=== PATIENT | male | born 1955 | race Caucasian/White ===

== ENCOUNTER 2017-02-05 09:52 | Emergency (ER) | payer OTHER ==
[~2017-02-05] VITALS: Ht 175.3 cm; Wt 88.0 kg
[2017-02-05 09:53] VITALS: BP 167/85; PULSE 76; RESP 20; TEMP 98.1; O2SAT 95
[2017-02-05] MEDS ORDERED: LORazepam 1 MG TAB PO ONE ×2 (11:00→17:45)
[2017-02-05 11:49] LABS: AUTOMATED NEUTROPHIL # 2.5 TH/MM3 (1.8-7.7); BASOPHIL # 0.1 TH/MM3 (0-0.2); BASOPHIL % 1.6 % (0.0-2.0); EOSINOPHIL % 0.7 % (0.0-4.0); HEMATOCRIT 41.6 % (39.0-51.0); LYMPH % 16.6 % (9.0-44.0); LYMPHOCYTE # 0.6 TH/MM3 (1.0-4.8); MEAN CELL VOLUME 86.2 FL (80.0-100.0); MEAN CORPUSCULAR HEMOGLOBIN 28.6 PG (27.0-34.0); MEAN CORPUSCULAR HGB CONC 33.2 % (32.0-36.0); MONO % 7.2 % (0.0-8.0); NEUT % 73.9 % (16.0-70.0); PLATELET COUNT 170 TH/MM3 (150-450); RED BLOOD COUNT 4.83 MIL/MM3 (4.50-5.90); RED CELL DISTRIBUTION WIDTH 13.8 % (11.6-17.2); WHITE BLOOD COUNT 3.4 TH/MM3 (4.0-11.0)
[2017-02-05 11:54] LABS: ALT (GPT) 19 U/L (12-78); ANION GAP 10 MEQ/L (5-15); AST (GOT) 20 U/L (15-37); BICARBONATE 25.8 MEQ/L (21.0-32.0); BLOOD UREA NITROGEN 19 MG/DL (7-18); CHLORIDE 102 MEQ/L (98-107); GLOMERULAR FILTRATION RATE 55 ML/MIN (>89); POTASSIUM 3.9 MEQ/L (3.5-5.1); SODIUM (NA) 138 MEQ/L (136-145)
[2017-02-05 11:55] LABS: HEMO FLAGS AUTO DIFF
[2017-02-05 11:57] LABS: ALKALINE PHOSPHATASE 55 U/L (45-117); TOTAL BILIRUBIN ADULT 0.7 MG/DL (0.2-1.0)
--- NOTE | 2017-02-05 12:13 | PD ---
HPI Chief Complaint: Medical Clearance Time Seen by Provider: 10:57 Travel History International Travel<30 days: No Contact w/Intl Traveler<30days: No Traveled to known affect area: No History of Present Illness HPI 58 through male with history of anxiety presents to the emergency department progressive worsening anxiety and feels like he needs to be hospitalized. He states he's had anxiety in the past. Typically when he has episodes she comes and stays with his sister, they try to reduce stress. This wasn't working. He saw his outpatient psychiatrist who made some medication adjustments. He last saw a psychiatrist on . Despite these adjustments he states he's got progressively more anxious, worried, hasn't slept in several days. He is brought in today accompanied by his sister. History Past Medical History Narrative Medical Anxiety Hypertension Diabetes GERD Past Surgical History Surgical History: No Previous Surgery Social History Alcohol Use: No Tobacco Use: No Allergies-Medications (Allergen,Severity, Reaction): Coded Allergies: No Known Allergies (Verified Allergy, Unknown, 02/05/17) Review of Systems Except as stated in HPI: all other systems reviewed are Neg Physical Exam Narrative GENERAL: Well-appearing 61-year-old man, anxious, nontoxic. SKIN: Focused skin assessment warm/dry. HEAD: Atraumatic. Normocephalic. EYES: Pupils equal and round. No scleral icterus. No injection or drainage. ENT: No nasal bleeding or discharge. Mucous membranes pink and moist. NECK: Trachea midline. No JVD. CARDIOVASCULAR: Regular rate and rhythm. No murmur appreciated. RESPIRATORY: No accessory muscle use. Clear to auscultation. Breath sounds equal bilaterally. GASTROINTESTINAL: Abdomen soft, non-tender, nondistended. Hepatic and splenic margins not palpable. MUSCULOSKELETAL: No obvious deformities. No clubbing. No cyanosis. No edema. NEUROLOGICAL: Awake and alert. No obvious cranial nerve deficits. Motor grossly within normal limits. Normal speech. PSYCHIATRIC: Anxious. Data Data Last Documented VS Vital Signs Date Time Temp Pulse Resp B/P (MAP) Pulse Ox O2 Delivery O2 Flow Rate FiO2 02/05/17 10:11 69 18 02/05/17 09:53 98.1 167/85 (112) 95 Room Air Orders Orders Complete Blood Count With Diff (02/05/17 10:57) Comprehensive Metabolic Panel (02/05/17 10:57) Psych Screen (02/05/17 10:57) Drug Screen, Random Urine (02/05/17 10:57) Lorazepam (Ativan) (02/05/17 11:00) Diet Regular Basic (02/05/17 Lunch) Labs Laboratory Tests Test 02/05/17 11:13 White Blood Count 3.4 TH/MM3 Red Blood Count 4.83 MIL/MM3 Hemoglobin 13.8 GM/DL Hematocrit 41.6 % Mean Corpuscular Volume 86.2 FL Mean Corpuscular Hemoglobin 28.6 PG Mean Corpuscular Hemoglobin Concent 33.2 % Red Cell Distribution Width 13.8 % Platelet Count 170 TH/MM3 Mean Platelet Volume 9.1 FL Neutrophils (%) (Auto) 73.9 % Lymphocytes (%) (Auto) 16.6 % Monocytes (%) (Auto) 7.2 % Eosinophils (%) (Auto) 0.7 % Basophils (%) (Auto) 1.6 % Neutrophils # (Auto) 2.5 TH/MM3 Lymphocytes # (Auto) 0.6 TH/MM3 Monocytes # (Auto) 0.2 TH/MM3 Eosinophils # (Auto) 0.0 TH/MM3 Basophils # (Auto) 0.1 TH/MM3 CBC Comment AUTO DIFF Blood Urea Nitrogen 19 MG/DL Creatinine 1.32 MG/DL Random Glucose 114 MG/DL Total Protein 7.5 GM/DL Albumin 4.0 GM/DL Calcium Level 9.2 MG/DL Alkaline Phosphatase 55 U/L Aspartate Amino Transf (AST/SGOT) 20 U/L Alanine Aminotransferase (ALT/SGPT) 19 U/L Total Bilirubin 0.7 MG/DL Sodium Level 138 MEQ/L Potassium Level 3.9 MEQ/L Chloride Level 102 MEQ/L Carbon Dioxide Level 25.8 MEQ/L Anion Gap 10 MEQ/L Estimat Glomerular Filtration Rate 55 ML/MIN [facility] Medical Decision Making Medical Screen Exam Complete: Yes Emergency Medical Condition: Yes Interpretation(s) LABS: CBC is unremarkable. CMP is remarkable for a little bit a renal disease. UA is positive for benzodiazepines. Differential Diagnosis Anxiety, stress reaction, adjustment reaction, other Narrative Course Medical decision making 60-year-old man progressive worsening anxiety presents to the emergency department requesting see psychiatry stating that he feels like he is been hospitalized for his anxiety. Patient is medically clear for psychiatric evaluation. Mental health screening discussed with the patient. Psychiatric screen ordered. James Bernal MD Feb 05, 2017 12:13
[2017-02-05 12:53] LABS: SCAN/DIFF AUTO DIFF CONFIRMED
--- NOTE | 2017-02-05 18:03 | PD ---
Physical Exam Date Seen by Provider: Feb 05, 2017 Time Seen by Provider: 18:02 Narrative 61-year-old male came to the emergency room with history of anxiety and depression. He was seen by the previous ER physician. He's been medically cleared. Currently waiting for psych evaluation. His sister is here who came out asking for some more by mouth Ativan for the patient since he is getting anxious. He was given 1 at 11 AM. I ordered 1 mg by mouth. If patient does not get a psych screen by the psychiatrist keya I will sign him over at the end of my shift to the PA who will be overnight in this pod. Data Data Last Documented VS Vital Signs Date Time Temp Pulse Resp B/P (MAP) Pulse Ox O2 Delivery O2 Flow Rate FiO2 02/06/17 11:22 02/06/17 07:00 98.0 84 16 99 Room Air Orders Orders Complete Blood Count With Diff (02/05/17 10:57) Comprehensive Metabolic Panel (02/05/17 10:57) Psych Screen (02/05/17 10:57) Drug Screen, Random Urine (02/05/17 10:57) Lorazepam (Ativan) (02/05/17 11:00) Diet Regular Basic (02/05/17 Dinner) Lorazepam (Ativan) (02/05/17 17:45) Alprazolam (Xanax) (02/05/17 22:30) Diet Regular Basic (02/06/17 Breakfast) Labs Laboratory Tests Test 02/05/17 11:13 White Blood Count 3.4 TH/MM3 Red Blood Count 4.83 MIL/MM3 Hemoglobin 13.8 GM/DL Hematocrit 41.6 % Mean Corpuscular Volume 86.2 FL Mean Corpuscular Hemoglobin 28.6 PG Mean Corpuscular Hemoglobin Concent 33.2 % Red Cell Distribution Width 13.8 % Platelet Count 170 TH/MM3 Mean Platelet Volume 9.1 FL Neutrophils (%) (Auto) 73.9 % Lymphocytes (%) (Auto) 16.6 % Monocytes (%) (Auto) 7.2 % Eosinophils (%) (Auto) 0.7 % Basophils (%) (Auto) 1.6 % Neutrophils # (Auto) 2.5 TH/MM3 Lymphocytes # (Auto) 0.6 TH/MM3 Monocytes # (Auto) 0.2 TH/MM3 Eosinophils # (Auto) 0.0 TH/MM3 Basophils # (Auto) 0.1 TH/MM3 CBC Comment AUTO DIFF Differential Comment AUTO DIFF CONFIRMED Blood Urea Nitrogen 19 MG/DL Creatinine 1.32 MG/DL Random Glucose 114 MG/DL Total Protein 7.5 GM/DL Albumin 4.0 GM/DL Calcium Level 9.2 MG/DL Alkaline Phosphatase 55 U/L Aspartate Amino Transf (AST/SGOT) 20 U/L Alanine Aminotransferase (ALT/SGPT) 19 U/L Total Bilirubin 0.7 MG/DL Sodium Level 138 MEQ/L Potassium Level 3.9 MEQ/L Chloride Level 102 MEQ/L Carbon Dioxide Level 25.8 MEQ/L Anion Gap 10 MEQ/L Estimat Glomerular Filtration Rate 55 ML/MIN Urine Opiates Screen NEG Urine Barbiturates Screen NEG Urine Amphetamines Screen NEG Urine Benzodiazepines Screen POS Urine Cocaine Screen NEG Urine Cannabinoids Screen NEG MDM Supervised Visit with STELLA: No Scripts Lorazepam (Ativan) 0.5 Mg Tab 0.5 MG PO TID Y for ANXIETY AND/OR AGITATION, #90 TAB 0 Refills Prov: Raymond Vizcarra MD 02/06/17 Jeffrey Ward MD Feb 05, 2017 18:03
[2017-02-05 19:00] VITALS: BP 148/74; PULSE 70; RESP 18; O2SAT 96
[2017-02-05] MEDS ORDERED: ALPR0.5T3 PO (20:11)
[2017-02-05] MEDS ORDERED: METF500T4 PO (20:33)
[2017-02-05] MEDS ORDERED: RANI300T PO (20:33)
[2017-02-05] MEDS ORDERED: AMLO2.5C PO (20:33)
[2017-02-05] MEDS ORDERED: PARO40TA2 PO (20:33)
[2017-02-05] MEDS ORDERED: SERT-129 PO (20:33)
[2017-02-05] MEDS ORDERED: PRAV40TA2 PO (20:33)
[2017-02-05] MEDS ORDERED: TRAZ1TAB45 PO (20:33)
[2017-02-05] MEDS ORDERED: ALPRAZolam 0.5 MG TAB PO ONE (22:30)
[2017-02-05 23:00] VITALS: BP 140/69; PULSE 68; RESP 17; O2SAT 95
[2017-02-06 03:00] VITALS: BP 126/70; PULSE 73; RESP 17; O2SAT 96
[2017-02-06 07:00] VITALS: BP 124/78; PULSE 84; RESP 16; TEMP 98; O2SAT 99
[2017-02-06] MEDS ORDERED: LORA-392 PO (10:05)
--- NOTE | 2017-02-06 10:10 | PD ---
History of Present Illness Chief Complaint: Medical Clearance Time Seen by Provider: 10:00 Travel History International Travel<30 Days: No Contact w/Intl Traveler<30days: No Known affected area: No Legal Status Legal Status: Voluntary History of Present Illness: 61-year-old male presents with incapacitating anxiety. Patient's own psychiatrist changed him from Ativan 0.5 3 times a day to Xanax. Patient states this is not helping and he is worse. Wants to return to Ativan. Wants to continue on his antidepressant medicine. Denies any suicidal or homicidal ideation, plan or intent. No psychotic symptoms. Cognition intact. Verbally jessica for safety. PFSH Past Medical History Anxiety: Yes Cardiovascular Problems: Yes (MT) High Cholesterol: Yes Diabetes: Yes Patient Takes Glucophage: Yes (metformin ) Hypertension: Yes Past Surgical History Surgical History: No Previous Surgery Psychiatric History Psychiatric History Hx Psychiatric Treatment: TREATED AN OUTPATIENT BY A PSYCHIATRIST IN [place] History of Inpatient Treatment: No Guns or firearms in home: No Social History Hx Alcohol Use: No Hx Tobacco Use: No Hx Substance Use: No Hx of Substance Use Treatment: No Allergies-Medications (Allergen,Severity, Reaction): Coded Allergies: No Known Allergies (Verified Allergy, Unknown, 02/05/17) Reported Meds & Prescriptions Reported Meds & Active Scripts Active Ativan (Lorazepam) 0.5 Mg Tab 0.5 Mg PO TID PRN Reported Metformin ER (Metformin HCl) 500 Mg Jaxon 500 Mg PO BID With evening meal Paroxetine (Paroxetine HCl) 40 Mg Tab 40 Mg PO HS Pravastatin 40 Mg Tab 40 Mg PO HS Amlodipine-Benazepril 2.5-10 Mg Cap 1 Cap PO DAILY Trazodone (Trazodone HCl) 150 Mg Tablet 150 Mg PO HS Sertraline (Sertraline HCl) 100 Mg Tab 100 Mg PO DAILY Ranitidine (Ranitidine HCl) 300 Mg Tab 300 Mg PO DAILY Alprazolam 0.5 Mg Tab 0.5 Mg PO DAILY PRN Review of Systems Except as stated in HPI: all other systems reviewed are Neg Exam Alert: Yes [place]: Person, Place, Date Mood: Anxious Affect: Appropriate Speech: Clear, Logical Eye Contact: Normal Memory Intact: Immediate, Recent, Remote Delusions: No Insight/Judgement Adequate MDM Medical Decision Making Medical Record Reviewed: Yes Assessment/Plan This physician recommends and prescribed Ativan 0.5 mg 3 times a day. Ativan likely less addicting than Xanax. Patient to continue on his antidepressant. Patient states he will find a different psychiatrist in [place]. He is jessica for safety and he is competent to do so. Does not meet criteria for Canseco act or involuntary psychiatric hospitalization. Patient given informed consent regarding his dependence on benzos. Orders Orders Complete Blood Count With Diff (02/05/17 10:57) Comprehensive Metabolic Panel (02/05/17 10:57) Psych Screen (02/05/17 10:57) Drug Screen, Random Urine (02/05/17 10:57) Lorazepam (Ativan) (02/05/17 11:00) Diet Regular Basic (02/05/17 Dinner) Lorazepam (Ativan) (02/05/17 17:45) Alprazolam (Xanax) (02/05/17 22:30) Diet Regular Basic (02/06/17 Breakfast) Results Vital Signs Date Time Temp Pulse Resp B/P (MAP) Pulse Ox O2 Delivery O2 Flow Rate FiO2 02/06/17 07:00 98.0 84 16 124/78 (93) 99 Room Air 02/06/17 03:00 73 17 126/70 (88) 96 Room Air 02/05/17 23:00 68 17 140/69 (92) 95 Room Air 02/05/17 19:00 70 18 148/74 (98) 96 Room Air 02/05/17 10:11 69 18 Laboratory Tests Test 02/05/17 11:13 White Blood Count 3.4 Red Blood Count 4.83 Hemoglobin 13.8 Hematocrit 41.6 Mean Corpuscular Volume 86.2 Mean Corpuscular Hemoglobin 28.6 Mean Corpuscular Hemoglobin Concent 33.2 Red Cell Distribution Width 13.8 Platelet Count 170 Mean Platelet Volume 9.1 Neutrophils (%) (Auto) 73.9 Lymphocytes (%) (Auto) 16.6 Monocytes (%) (Auto) 7.2 Eosinophils (%) (Auto) 0.7 Basophils (%) (Auto) 1.6 Neutrophils # (Auto) 2.5 Lymphocytes # (Auto) 0.6 Monocytes # (Auto) 0.2 Eosinophils # (Auto) 0.0 Basophils # (Auto) 0.1 CBC Comment AUTO DIFF Differential Comment AUTO DIFF CONFIRMED Blood Urea Nitrogen 19 Creatinine 1.32 Random Glucose 114 Total Protein 7.5 Albumin 4.0 Calcium Level 9.2 Alkaline Phosphatase 55 Aspartate Amino Transf (AST/SGOT) 20 Alanine Aminotransferase (ALT/SGPT) 19 Total Bilirubin 0.7 Sodium Level 138 Potassium Level 3.9 Chloride Level 102 Carbon Dioxide Level 25.8 Anion Gap 10 Estimat Glomerular Filtration Rate 55 Urine Opiates Screen NEG Urine Barbiturates Screen NEG Urine Amphetamines Screen NEG Urine Benzodiazepines Screen POS Urine Cocaine Screen NEG Urine Cannabinoids Screen NEG Diagnosis Primary Impression: Adjustment disorder with mixed disturbance of emotions and conduct Additional Impression: Benzodiazepine dependence, continuous Prescriptions Lorazepam (Ativan) 0.5 Mg Tab 0.5 MG PO TID Y for ANXIETY AND/OR AGITATION, #90 TAB 0 Refills Prov: Raymond Vizcarra MD 02/06/17 Problem Qualifiers Raymond Vizcarra MD Feb 06, 2017 10:10
--- NOTE | 2017-02-06 10:56 | PD ---
Physical Exam Time Seen by Provider: 10:[address] Vizcarra evaluated the patient. I read Dr. Vizcarra's note and the patient is cleared for discharge and meets no criteria for Canseco act. Data Data Last Documented VS Vital Signs Date Time Temp Pulse Resp B/P (MAP) Pulse Ox O2 Delivery O2 Flow Rate FiO2 02/06/17 07:00 98.0 84 16 124/78 (93) 99 Room Air Orders Orders Complete Blood Count With Diff (02/05/17 10:57) Comprehensive Metabolic Panel (02/05/17 10:57) Psych Screen (02/05/17 10:57) Drug Screen, Random Urine (02/05/17 10:57) Lorazepam (Ativan) (02/05/17 11:00) Diet Regular Basic (02/05/17 Dinner) Lorazepam (Ativan) (02/05/17 17:45) Alprazolam (Xanax) (02/05/17 22:30) Diet Regular Basic (02/06/17 Breakfast) Labs Laboratory Tests Test 02/05/17 11:13 White Blood Count 3.4 TH/MM3 Red Blood Count 4.83 MIL/MM3 Hemoglobin 13.8 GM/DL Hematocrit 41.6 % Mean Corpuscular Volume 86.2 FL Mean Corpuscular Hemoglobin 28.6 PG Mean Corpuscular Hemoglobin Concent 33.2 % Red Cell Distribution Width 13.8 % Platelet Count 170 TH/MM3 Mean Platelet Volume 9.1 FL Neutrophils (%) (Auto) 73.9 % Lymphocytes (%) (Auto) 16.6 % Monocytes (%) (Auto) 7.2 % Eosinophils (%) (Auto) 0.7 % Basophils (%) (Auto) 1.6 % Neutrophils # (Auto) 2.5 TH/MM3 Lymphocytes # (Auto) 0.6 TH/MM3 Monocytes # (Auto) 0.2 TH/MM3 Eosinophils # (Auto) 0.0 TH/MM3 Basophils # (Auto) 0.1 TH/MM3 CBC Comment AUTO DIFF Differential Comment AUTO DIFF CONFIRMED Blood Urea Nitrogen 19 MG/DL Creatinine 1.32 MG/DL Random Glucose 114 MG/DL Total Protein 7.5 GM/DL Albumin 4.0 GM/DL Calcium Level 9.2 MG/DL Alkaline Phosphatase 55 U/L Aspartate Amino Transf (AST/SGOT) 20 U/L Alanine Aminotransferase (ALT/SGPT) 19 U/L Total Bilirubin 0.7 MG/DL Sodium Level 138 MEQ/L Potassium Level 3.9 MEQ/L Chloride Level 102 MEQ/L Carbon Dioxide Level 25.8 MEQ/L Anion Gap 10 MEQ/L Estimat Glomerular Filtration Rate 55 ML/MIN Urine Opiates Screen NEG Urine Barbiturates Screen NEG Urine Amphetamines Screen NEG Urine Benzodiazepines Screen POS Urine Cocaine Screen NEG Urine Cannabinoids Screen NEG MDM Supervised Visit with STELLA: No Narrative Course Dr. Vizcarra evaluated the patient. I read Dr. Vizcarra's note and the patient is cleared for discharge and meets no criteria for Ajith gallagher. The patient came in with worsening of anxiety after his psychiatrist switched him from Ativan to Xanax. He saw his psychiatrist on with the current med adjustment. The patient will follow up with a psychiatrist in [place] and will find a new psychiatrist. He denies suicidal ideation. Patient has outpatient support and follow-up. Dr. Vizcarra provided the patient with a prescription for Ativan. Patient is stable for discharge. Diagnosis Primary Impression: Adjustment disorder with mixed disturbance of emotions and conduct Additional Impression: Benzodiazepine dependence, continuous Referrals: Primary Care Physician Psychiatrist Kaela [facility]ALL[facility] Patient Instructions: Anxiety (ED), Benzodiazepine Abuse (ED), General Instructions, Mood Disorders (ED) Additional Instruction: Take Ativan as prescribed Follow-up with psychiatry Follow-up with primary care provider Return to the emergency department immediately with worsening of symptoms Med/Other Pt SpecificInfo: Prescription(s) given Scripts Lorazepam (Ativan) 0.5 Mg Tab 0.5 MG PO TID Y for ANXIETY AND/OR AGITATION, #90 TAB 0 Refills Prov: Raymond Vizcarra MD 02/06/17 Disposition: 01 DISCHARGE HOME Condition: Stable Roxanne Jorge Feb 06, 2017 10:56
== END 2017-02-06 11:37 | disposition home or self-care (01) ==
LOC: NEPD 09:52
DX: F43.25 Adjustment disorder with mixed disturbance of emotions and conduct (principal); I10 Essential (primary) hypertension; E11.9 Type 2 diabetes mellitus without complications; Z79.84 Long term (current) use of oral hypoglycemic drugs; K21.9 Gastro-esophageal reflux disease without esophagitis
CPT/HCPCS: 80053; 80307; 85025; 99284